=== PATIENT | female | born 1995 | race American Indian/Alaskan Native ===

== ENCOUNTER 2017-02-25 19:45 | Emergency (ER) | payer MEDICAID ==
--- NOTE | 2017-02-25 20:27 | Emergency Department Report ---
Chief Complaint: Dizziness Stated Complaint: DIZZINESS, MEHTA Time Seen by Provider: 02/25/17 20:25 - HPI History of Present Illness: pt c/o dizziness and headache. pt states she might be . pt states her lmp was in dec. pt has not taken a home test. pt states she has noticed that her breasts are tender. - ROS Review of Systems: + vaginal spotting + change in mood (thinks she might be ) denies morning sickness - Exam Physical Exam: pt looks well, non toxic. no acute distress in triage. gcs 15. no gu exam completed in triage MSE screening note: Focused history and physical exam performed. Due to findings the following was ordered: labs ED Disposition for MSE Condition: Stable
[2017-02-25 21:07] LABS: Bilirubin,Urine NEG (Negative); Blood,Urine NEG (Negative); Ketones,Urine TR mg/dL (Negative); Leukocyte Esterase,Urine NEG (Negative); Mucus,Urine 3+ /HPF; Nitrite,Urine NEG (Negative)
[2017-02-25 21:12] LABS: WBC,Urine < 1.0 /HPF (0.0-6.0)
[2017-02-25 23:32] LABS: Basophils % (Auto) 0.2 % (0.0-1.8); Eosinophils % (Auto) 1.7 % (0.0-4.3); Hematocrit 35.2 % (30.3-42.9); Hemoglobin 11.5 gm/dl (10.1-14.3); Mean Corpuscular HGB Conc 33 % (30-34); Mean Corpuscular Hemoglobin 27 pg (28-32); Mean Corpuscular Volume 81 fl (79-97); Platelet Count 265 K/mm3 (140-440); Red Blood Count 4.33 M/mm3 (3.65-5.03); Red Cell Distribution Width 12.6 % (13.2-15.2); White Blood Count 8.5 K/mm3 (4.5-11.0)
[2017-02-25 23:51] LABS: Blood Urea Nitrogen 10 mg/dL (7-17); Carbon Dioxide 24 mmol/L (22-30)
[2017-02-25 23:52] LABS: Alanine Aminotransferase 8 units/L (7-56); Albumin 3.7 g/dL (3.9-5); Alkaline Phosphatase 70 units/L (35-129); Anion Gap 18 mmol/L; BUN/Creatinine Ratio 16.66; Bilirubin,Total 0.3 mg/dL (0.1-1.2); Chloride 103.2 mmol/L (98-107); Glucose 80 mg/dL (65-100); Potassium 4.3 mmol/L (3.6-5.0); Sodium 141 mmol/L (137-145); Total Protein 7.4 g/dL (6.3-8.2)
[2017-02-26 04:15] VITALS: BP 109/70
[2017-02-26] MEDS ORDERED: TYLENOL PO ONE (04:15)
--- NOTE | 2017-02-26 06:20 | Emergency Department Report ---
ED General Adult HPI - General Chief complaint: Vaginal Bleeding Stated complaint: DIZZINESS, MEHTA Time Seen by Provider: 02/25/17 20:25 Source: patient Mode of arrival: Ambulatory Limitations: No Limitations - History of Present Illness Initial comments: 21-year-old female presents to the emergency Department with multiple complaints. Patient says for the past one week she has been having intermittent dizziness, headache, and sore throat. There has been no fever. Patient states that she missed her menstrual cycle in December. She states that 4 days after she was supposed to start her cycle, she began having vaginal spotting. Patient is concerned that she might be . There are no other complaints. -: Gradual, week(s) (1) Location: head Severity scale (0 -10): 9 Quality: aching Consistency: constant Improves with: none Worsens with: none - Related Data Allergies Allergy/AdvReac Type Severity Reaction Status Date / Time No Known Allergies Allergy Unverified 02/25/17 20:28 ED Review of Systems ROS: Stated complaint: DIZZINESS, MEHTA Other details as noted in HPI Comment: All other systems reviewed and negative ENT: throat pain Neurological: headache, vertigo ED Past Medical Hx - Past Medical History Previous Medical History?: Yes Hx Hypertension: (only during ) Hx Asthma: Yes - Surgical History Past Surgical History?: No - Family History Family history: no significant - Social History Smoking Status: Never Smoker Substance Use Type: None ED Physical Exam - General Limitations: No Limitations General appearance: alert, in no apparent distress - Head Head exam: Present: atraumatic, normocephalic - Eye Eye exam: Present: normal appearance, PERRL, EOMI - ENT ENT exam: Present: normal exam, normal orophraynx, mucous membranes moist - Neck Neck exam: Present: normal inspection, full ROM. Absent: tenderness - Respiratory Respiratory exam: Present: normal lung sounds bilaterally. Absent: respiratory distress - Cardiovascular Cardiovascular Exam: Present: regular rate, normal rhythm, normal heart sounds - GI/Abdominal GI/Abdominal exam: Present: soft, normal bowel sounds. Absent: distended, tenderness - Extremities Exam Extremities exam: Present: normal inspection, full ROM. Absent: tenderness - Back Exam Back exam: Present: normal inspection, full ROM. Absent: tenderness - Neurological Exam Neurological exam: Present: alert, oriented X3. Absent: motor sensory deficit - Skin Skin exam: Present: warm, dry, intact ED Course Vital Signs 02/25/17 02/26/17 02/26/17 20:18 04:14 05:30 Temperature 98.6 F 98.0 F Pulse Rate 74 70 Respiratory 18 20 18 Rate Blood Pressure 113/74 Blood Pressure 109/70 [Left] O2 Sat by Pulse 100 99 Oximetry ED Medical Decision Making - Lab Data Result diagrams: 02/25/17 23:08 02/25/17 23:08 - Medical Decision Making Laboratory results reviewed and discussed with the patient. Patient reports her symptoms are much improved following Tylenol. Patient will be discharged home at this time to follow up with her primary care physician. - Differential Diagnosis viral syndrome, Critical care attestation.: If time is entered above; I have spent that time in minutes in the direct care of this critically ill patient, excluding procedure time. ED Disposition Clinical Impression: Viral syndrome Disposition: DISCHARGED TO HOME OR SELFCARE Is pt being admited?: No Condition: Stable Instructions: Viral Syndrome (ED) Referrals: JOSE HERNANDEZ MD [Primary Care Provider] - 3-5 Days Time of Disposition: 06:20
== END 2017-02-26 06:25 | disposition home or self-care (01) ==
LOC: ED 19:45
DX: B34.9 Viral infection, unspecified (principal); J45.909 Unspecified asthma, uncomplicated
CPT/HCPCS: 36415; 80053; 81001; 81025; 85025; 99283

== ENCOUNTER 2018-07-29 22:29 | Outpatient (CLI) | payer MEDICAID ==
[2018-07-29] MEDS ORDERED: LACTATED RINGERS 1,000 ML ONE (22:53)
--- NOTE | 2018-07-30 02:15 | Ultrasound Report ---
FINAL REPORT PROCEDURE: US OB > = 14 WEEKS FETUS TECHNIQUE: Real-time transabdominal sonography of the uterus, placenta, amniotic fluid, adnexa, and fetus was performed with image documentation. Measurements were obtained to determine age/size. M-mode Doppler was used to document heartbeat. HISTORY: Twenty-two weeks, contractions. History of 22 week loss. COMPARISON: No prior studies are available for comparison. FINDINGS: LMP: 02/23/2018. Clinical age: 22 weeks 3 days. EDC: 11/30/2018. GENERAL: IUP: Single living intrauterine . Position: Cephalic. Placental position: Anterior grade 0, without previa. Amniotic fluid volume: Normal. MATERNAL: Uterus: Within normal limits. Cervical length: 4.3 cm. Internal Os: Closed. FETUS: Heart rate and rhythm: 142 beats per minute anatomic survey: Choroid plexus, cisterna magna, cerebellum, lateral ventricles, stomach, kidneys, bladder, diaphragm, four-chamber heart, three-vessel cord and insertion, and longitudinal and transverse images of the spine seen. MEASUREMENTS: BPD: 5.63 cm, 23 weeks 1 day HC: 20.98 cm, 23 weeks 0 days AC: 18.94 cm, 23 weeks 5 days FL: 3.77 cm, 22 weeks 0 days HC/AC: 1.11 Cephalic index: 82.6 Mean Gestational Age (composite criteria): 23 weeks 0 days Estimated Weight: 553 grams. 72 percentile. Interval growth: Appropriate. Estimated Due Date (earliest scan): 11/26/2018. IMPRESSION: Single intrauterine gestation at 23 weeks 0 days estimated due date: 11/26/2018. Normal survey with appropriate growth.
== END 2018-07-30 03:11 | disposition home or self-care (01) ==
LOC: TRG 22:29 → LD 22:32 → TRG 07-30 03:11
PROVIDERS: ATTEND Obstetrics & Gynecology
DX: O26.891 Other specified pregnancy related conditions, first trimester (principal); O99.511 Diseases of the respiratory system complicating pregnancy, first trimester; J45.909 Unspecified asthma, uncomplicated; R10.9 Unspecified abdominal pain; Z3A.14 14 weeks gestation of pregnancy; Z87.891 Personal history of nicotine dependence
CPT/HCPCS: 59025; 76805; 96360; J7120

== ENCOUNTER 2018-08-30 20:27 | Outpatient (CLI) | payer MEDICAID ==
[2018-08-30] MEDS ORDERED: LACTATED RINGERS 1,000 ML IV ONE (20:58)
[2018-08-30 21:32] LABS: Bacteria,Urine 1+ /HPF (Negative); Bilirubin,Urine NEG (Negative); Blood,Urine NEG (Negative); Color,Urine Yellow (Yellow); Mucus,Urine FEW /HPF; Protein,Urine <15 mg/dL mg/dL (Negative); Urobilinogen,Urine < 2.0 mg/dL (<2.0)
[2018-08-30 21:49] VITALS: BP 99/65
[2018-08-30] MEDS ORDERED: ANCEF/NS 1 GM/50 ML 1 GM/50 ML BAG IV ONE (22:04)
[2018-08-30] MEDS: BRETHINE SUB-Q SCH ×2 (22:41→23:09)
== END 2018-08-30 23:42 | disposition home or self-care (01) ==
LOC: TRG 20:27
PROVIDERS: ATTEND Obstetrics & Gynecology
DX: O62.8 Other abnormalities of forces of labor (principal); O99.512 Diseases of the respiratory system complicating pregnancy, second trimester; J45.909 Unspecified asthma, uncomplicated; Z3A.26 26 weeks gestation of pregnancy
CPT/HCPCS: 81001; 87086; 96360; 96361; 96372; J0690; J3105; J7120